=== PATIENT | male | born 1960 | race African-American/Black ===

== ENCOUNTER 2017-10-30 18:37 | Emergency (ER) | payer MEDICAID ==
[~2017-10-30] VITALS: Ht 177.8 cm; Wt 114.0 kg
[2017-10-30 22:25] LABS: CLARITY URINE CLOUDY (CLEAR); COLOR URINE ORANGE (YELLOW); KETONES URINE TRACE (NEGATIVE); LEUKOCYTE ESTERASE URINE 1+ (NEGATIVE); NITRITE URINE NEGATIVE (NEGATIVE); OCCULT BLOOD URINE 3+ (NEGATIVE); PH URINE 5.5 (4.5-8.0); PROTEIN URINE 3+ (NEGATIVE); SPECIFIC GRAVITY URINE 1.027 (1.005-1.030)
[2017-10-30 22:44] LABS: CHLORIDE 111 mEq/L (98-107)
[2017-10-30 22:47] LABS: *AMPHETAMINES SCREEN URINE PRESUMTIVE POSITIVE (NEGATIVE); *BARBITURATES SCREEN URINE NEGATIVE (NEGATIVE); *BENZODIAZEPINES SCREEN URINE NEGATIVE (NEGATIVE); *COCAINE SCREEN URINE NEGATIVE (NEGATIVE); CANNABINOID URINE SCREEN PRESUMTIVE POSITIVE (NEGATIVE); METHADONE URINE SCREEN NEGATIVE (NEGATIVE); OPIATES URINE SCREEN NEGATIVE (NEGATIVE); PHENCYCLIDINE URINE SCREEN PRESUMTIVE POSITIVE (NEGATIVE)
[2017-10-30 22:49] LABS: CARBON DIOXIDE 27 mEq/L (21-32); ETHANOL BLOOD < 10 mg/dL
[2017-10-30 22:55] LABS: BASOPHILS % 0.7 % (0.0-2.0); EOSINOPHILS % 0.5 % (0.0-5.0); HEMATOCRIT. 43.4 % (42.0-52.0); HEMOGLOBIN. 14.2 g/dL (14.0-18.0); LYMPHOCYTES % 30.2 % (20.0-50.0); MEAN CORPUSCULAR HEMOGLOBIN 27.9 pg (28.0-32.0); MEAN CORPUSCULAR VOLUME 84.9 fL (80.0-94.0); MEAN PLATELET VOLUME 7.8 fl (7.4-10.4); MONOCYTES % 7.9 % (2.0-8.0); NEUTROPHILS % 60.7 % (40.0-76.0); PLATELET 328 x1000/uL (130-400); RED BLOOD CELL COUNT 5.11 mill/uL (4.7-6.1)
[2017-10-30] MEDS ORDERED: SODIUM CHLORIDE 0.9% 1,000 ML IV ONE (23:34)
[2017-10-30] MEDS ORDERED: LORAZEPAM 2MG/ML CPJ IV STA (23:34)
[2017-10-30] MEDS ORDERED: AZITHROMYCIN 500 MG in DEXT 5% WATER 250 ML IV ONE (23:45)
[2017-10-30] MEDS ORDERED: CEFTRIAXONE 1 G PREMIX 50 ML IV ONE (23:45)
[2017-10-30] MEDS ORDERED: SODIUM CHLORIDE 0.9% 1000ML BAG (SEPSIS BOLUS) IV ONE (23:45)
[2017-10-31] MEDS ORDERED: ZIPRASIDONE MESYLATE 20MG/VIAL IM ONE
[2017-10-31 13:30] VITALS: BP 161/88
== END 2017-10-31 14:29 | disposition home or self-care (01) ==
LOC: ER 18:37
DX: F23 Brief psychotic disorder (principal); E11.9 Type 2 diabetes mellitus without complications; I10 Essential (primary) hypertension; N39.0 Urinary tract infection, site not specified; F15.10 Other stimulant abuse, uncomplicated; F16.10 Hallucinogen abuse, uncomplicated; F12.10 Cannabis abuse, uncomplicated
CPT/HCPCS: 36415; 74176; 80053; 80305; 80307; 80329; 81001; 82962; 83605; 85025; 87040; 93005; 96365; 96367; 96372; 96375; 99285; G0482; J0456; J0696; J2060; J3486; J7030; 81025; J7060

== ENCOUNTER 2020-03-10 18:45 | Emergency (ER) | payer MEDICAID ==
[~2020-03-10] VITALS: Ht 172.7 cm; Wt 118.0 kg
[~2020-03-10 18:45] MED LIST: ASPI-1158 PO; ATEN-42 PO; ATOR10TA PO; BENA20TA10 PO; METF-414 PO; TAMS-11 PO
[2020-03-10] MEDS ORDERED: ONDANSETRON HCL 4MG/2ML INJ IV STA (20:19)
[2020-03-10] MEDS ORDERED: MORPHINE SULFATE 4 MG/ML CPJ (NOT FOR IM USE) IV STA (20:19)
[2020-03-10] MEDS ORDERED: SODIUM CHLORIDE 0.9% 1,000 ML IV ONE (20:19)
[2020-03-10 21:11] LABS: BASOPHILS % 1.3 % (0.0-2.0); EOSINOPHILS % 0.2 % (0.0-5.0); HEMATOCRIT. 40.6 % (42.0-52.0); HEMOGLOBIN. 14.1 g/dL (14.0-18.0); MEAN CORPUSCULAR VOLUME 86.7 fL (80.0-94.0); MEAN PLATELET VOLUME 7.9 fl (7.4-10.4); MONOCYTES % 6.9 % (2.0-8.0); NEUTROPHILS % 54.6 % (40.0-76.0); PLATELET 271 x1000/uL (130-400); RED BLOOD CELL COUNT 4.68 mill/uL (4.7-6.1)
[2020-03-10 21:16] LABS: CHLORIDE 103 mEq/L (98-107)
[2020-03-10 21:20] LABS: PARTIAL THROMBOPLASTIN TIME 20.3 sec (23.4-31.0); PROTHROMBIN TIME 10.7 sec (9.6-11.0)
[2020-03-10 21:26] VITALS: BP 136/72
[2020-03-10] MEDS ORDERED: LORAZEPAM 2MG/ML CPJ IV ONE (21:30)
[2020-03-10] MEDS ORDERED: CEFTRIAXONE 1 G PREMIX 50 ML IV ONE (22:30)
[2020-03-10] MEDS ORDERED: KCL 20MEQ/100ML PREMIX 100 ML IV ONE (22:30)
[2020-03-10 22:58] LABS: CLARITY URINE CLOUDY (CLEAR); COLOR URINE YELLOW (YELLOW); KETONES URINE TRACE (NEGATIVE); LEUKOCYTE ESTERASE URINE 2+ (NEGATIVE); NITRITE URINE NEGATIVE (NEGATIVE); OCCULT BLOOD URINE TRACE (NEGATIVE); PH URINE 5.5 (4.5-8.0); PROTEIN URINE 1+ (NEGATIVE); SPECIFIC GRAVITY URINE 1.021 (1.005-1.030); UROBILINOGEN URINE 0.2 E.U./dL (0.2-1.0)
[2020-03-11] MEDS ORDERED: ASPIRIN 325MG EC TABLET PO ONE (00:45)
[2020-03-11 09:32] LABS: *AMPHETAMINES SCREEN URINE PRESUMTIVE POSITIVE (NEGATIVE); *BARBITURATES SCREEN URINE NEGATIVE (NEGATIVE); *BENZODIAZEPINES SCREEN URINE NEGATIVE (NEGATIVE); *COCAINE SCREEN URINE NEGATIVE (NEGATIVE)
[2020-03-11 09:33] LABS: CANNABINOID URINE SCREEN NEGATIVE (NEGATIVE); METHADONE URINE SCREEN NEGATIVE (NEGATIVE); OPIATES URINE SCREEN PRESUMTIVE POSITIVE (NEGATIVE); PHENCYCLIDINE URINE SCREEN PRESUMTIVE POSITIVE (NEGATIVE)
== END 2020-03-11 00:55 | disposition left against medical advice (07) ==
LOC: ER 18:45 → EDBEDREQ 23:32 → ER 03-11 00:55 → CMPBEDREQ 03-11 05:42
DX: N39.0 Urinary tract infection, site not specified (principal); E87.6 Hypokalemia; R44.0 Auditory hallucinations; F16.10 Hallucinogen abuse, uncomplicated; Z86.59 Personal history of other mental and behavioral disorders
CPT/HCPCS: 36415; 71045; 74176; 80053; 80305; 81003; 83690; 83880; 84484; 85025; 85610; 85730; 87077; 87086; 87186; 93005; 96374; 96375; 99285; J2060; J2270; J2405; J7030; J0696; J3480

== ENCOUNTER 2020-11-17 18:27 | Emergency (ER) | payer MEDICAID ==
[~2020-11-17 18:27] MED LIST changes: -ASPI-1158 PO; +ASPI-1406 PO
== END 2020-11-17 19:16 | disposition left against medical advice (07) ==
LOC: ER 18:27
DX: Z53.21 Procedure and treatment not carried out due to patient leaving prior to being seen by health care provider (principal)